=== PATIENT | female | born 1940 | race Caucasian/White ===

== ENCOUNTER 2018-04-03 18:31 | Emergency (ER) | payer BC, MEDICARE ==
[2018-04-03 18:44] VITALS: BP 163/79
--- NOTE | 2018-04-03 19:18 | EDM.PDOC ---
ED HPI GENERAL MEDICAL PROBLEM - General Chief Complaint: Bite:Animal, Insect Stated Complaint: DEER TICK RIGHT LEG Time Seen by Provider: 04/03/18 19:01 Source of Information: Reports: Patient History Limitations: Reports: No Limitations - History of Present Illness INITIAL COMMENTS - FREE TEXT/NARRATIVE: This lady is here for an am dated deer tick in her right medial thigh. She doesn 't know how long its been there. She tried to remove it. Right Leg Pain Score (Numeric/FACES): 2 - Related Data Allergies Allergy/AdvReac Type Severity Reaction Status Date / Time No Known Allergies Allergy Verified 11/19/13 09:12 Home Meds: Home Meds Aspirin [Adult Low Dose Aspirin EC] 81 mg PO DAILY 07/02/14 [History] Simvastatin 20 mg PO DAILY 07/02/14 [History] Calcium Carb/Vitamin D3/Vit K1 [Calcium + Vit D & K Chew] 1 each PO DAILY [History] Doxylamine Succinate [Sleep Aid] 25 mg PO BEDTIME PRN 12/12/15 [History] Glucosamine [Glucosamine Sulfate] 1,000 mg PO DAILY 12/12/15 [History] Past Medical History HEENT History: Reports: Cataract, Impaired Vision Respiratory History: Reports: Pneumonia, Recurrent Gastrointestinal History: Reports: Colon Polyp, Hemorrhoids Genitourinary History: Reports: UTI, Recurrent [employer] History: Reports: Musculoskeletal History: Reports: Arthritis Endocrine/Metabolic History: Reports: Obesity/BMI 30+ - Infectious Disease History Infectious Disease History: Reports: Chicken Pox, Measles, Mumps Other Infectious Disease History: unsure if she has had chicken pox and she thinks she had measles as a child - Past Surgical History Endocrine Surgical History: Reports: None Musculoskeletal Surgical History: Reports: Other (See Below) Social & Family History - Family History Family Medical History: Noncontributory - Tobacco Use Smoking Status *Q: Never Smoker - Caffeine Use Caffeine Use: Reports: Coffee - Recreational Drug Use Recreational Drug Use: No ED ROS GENERAL - Review of Systems Review Of Systems: ROS reveals no pertinent complaints other than HPI. ED EXAM, ANIMAL BITE - Physical Exam Exam: See Below Skin Exam: Other (On the medial aspect of the right thigh there is a small black speck about half millimeter in diameter on top of a an area about 3 mm in diameter where she was scraped off the skin is consistent with a embedded deer tick head.) Course - Vital Signs Last Recorded V/S: Last Vital Signs Temp 36.2 C 04/03/18 18:48 Pulse 71 04/03/18 18:48 Resp 16 04/03/18 18:48 BP 163/79 H 04/03/18 18:48 Pulse Ox 93 L 04/03/18 18:48 - Re-Assessments/Exams Free Text/Narrative Re-Assessment/Exam: 04/03/18 19:16 The area was cleaned with an alcohol swab. Then using a #15 blade I made a horseshoe shaped incision around the head and it was able to scrape it out. There was no blood loss. A Band-Aid was applied Departure - Departure Time of Disposition: 19:16 Disposition: Home, Self-Care 01 Condition: Fair Clinical Impression: Embedded tick of right thigh - Discharge Information Referrals: PCP,None [Primary Care Provider] - Additional Instructions: The prescription will say take doxycycline twice daily for 1 week but for a bite like this 3 days is sufficient. The wound should not require any further care. The antibiotic will help prevent any infection.
== END 2018-04-03 19:25 | disposition home or self-care (01) ==
LOC: JP.ED 18:31
DX: S70.351A Superficial foreign body, right thigh, initial encounter (principal); S70.361A Insect bite (nonvenomous), right thigh, initial encounter; Z79.82 Long term (current) use of aspirin; Z79.899 Other long term (current) drug therapy; W57.XXXA Bitten or stung by nonvenomous insect and other nonvenomous arthropods, initial encounter
CPT/HCPCS: 10120; 99283-25

== ENCOUNTER → 2019-01-14 | Day surgery (SDC) | payer MEDICARE, BC ==
[~2019-01-14] MED LIST: Midazolam 1 MG/ML 2 ML SDV ONE; Propofol 200 MG/20 ML SDV ONE; Sodium Chloride 0.9% 1,000 ML IV SCH; fentaNYL 100 MCG/2 ML SDV ONE
[2019-01-14 09:29] VITALS: BP 155/100
--- NOTE | 2019-01-15 08:46 | OR ---
DATE OF PROCEDURE: 01/14/2019 SURGEON: Jared Calvert MD PROCEDURE: Colonoscopy. FINDINGS: Diverticulosis, moderate, limited to sigmoid colon. PREOPERATIVE DIAGNOSIS: Screening colonoscopy. POSTOPERATIVE DIAGNOSIS: Screening colonoscopy. RISKS: Risks, benefits, alternatives, and limitations including, but not limited to, infection, bleeding, and perforation were explained to the patient, who wished to proceed. DESCRIPTION OF PROCEDURE: The patient was placed in the left lateral decubitus position. Digital rectal exam was performed without abnormality. The scope was introduced and advanced atraumatically to the ileocecal valve. The scope was brought back through the ascending, transverse, descending colon, and retroflexed. No masses. No polyps. Diverticulosis was described as mild and limited to sigmoid colon. No abnormalities on retroflexion. The patient tolerated the procedure well. Jared Calvert MD /[id number]
== END ==
LOC: JP.SDS 06:42
PROVIDERS: ATTEND Surgery
DX: Z12.11 Encounter for screening for malignant neoplasm of colon (principal); K57.30 Diverticulosis of large intestine without perforation or abscess without bleeding
CPT/HCPCS: G0121; J2250; J2704; J3010; J7030

== ENCOUNTER 2022-08-29 07:23 | Day surgery (SDC) | payer MEDICARE, BC ==
[2022-08-29] MEDS: Sodium Chloride 0.9% 10 ML Syringe FLUSH PRN (07:56)
[2022-08-29] MEDS ORDERED: Propofol 200 MG/20 ML SDV ONE (09:06)
[2022-08-29 09:40] VITALS: BP 120/77; PULSE 63
== END 2022-08-29 10:09 | disposition home or self-care (01) ==
LOC: JP.SDS 07:23
PROVIDERS: ATTEND Ophthalmology
DX: H25.11 Age-related nuclear cataract, right eye (principal); Z88.8 Allergy status to other drugs, medicaments and biological substances
CPT/HCPCS: 66984; J2704; J3490

== ENCOUNTER 2022-09-12 08:16 | Day surgery (SDC) | payer MEDICARE, BC ==
[2022-09-12] MEDS ORDERED: Sodium Chloride 0.9% 1,000 ML IV SCH (09:30)
[2022-09-12] MEDS ORDERED: Propofol 200 MG/20 ML SDV ONE (09:43)
[2022-09-12 11:01] VITALS: PULSE 57
[2022-09-12 11:13] VITALS: BP 116/72
== END 2022-09-12 11:34 | disposition home or self-care (01) ==
LOC: JP.SDS 08:16
PROVIDERS: ATTEND Ophthalmology
DX: H25.12 Age-related nuclear cataract, left eye (principal); Z88.8 Allergy status to other drugs, medicaments and biological substances
CPT/HCPCS: 66984; J2704; J7030

== ENCOUNTER 2024-06-23 03:03 | Emergency (ER) | payer MEDICARE, BC ==
[2024-06-23] MEDS: Cyclobenzaprine 10 MG Tab PO ONE (03:32)
[2024-06-23] MEDS: Ketorolac 30 MG/ML SDV IVPUSH ONE (03:33)
[2024-06-23] MEDS: Sodium Chloride 0.9% 10 ML Syringe FLUSH PRN (03:34)
[2024-06-23] MEDS ORDERED: Naloxone 0.4 MG/ML SDV IVPUSH PRN (04:24)
[2024-06-23 04:38] VITALS: PULSE 76
[2024-06-23] MEDS: fentaNYL 100 MCG/2 ML SDV IVPUSH ONE (04:44)
[2024-06-23 05:29] VITALS: BP 149/88
== END 2024-06-23 08:25 | disposition home or self-care (01) ==
LOC: JP.ED 03:03
DX: M54.6 Pain in thoracic spine (principal); E78.00 Pure hypercholesterolemia, unspecified; E66.9 Obesity, unspecified; Z88.8 Allergy status to other drugs, medicaments and biological substances; Z79.82 Long term (current) use of aspirin; Z79.899 Other long term (current) drug therapy; Z90.49 Acquired absence of other specified parts of digestive tract; Z90.710 Acquired absence of both cervix and uterus; Z68.29 Body mass index [BMI] 29.0-29.9, adult
CPT/HCPCS: 96374; 96375; 99284; A9270; J1885; J3010; J3490

== ENCOUNTER 2024-06-25 08:33 | Emergency (ER) | payer MEDICARE, BC ==
[2024-06-25 09:02] VITALS: BP 115/70; PULSE 97
[2024-06-25 09:35] LABS: BASOPHILS ABSOLUTE AUTO 0.04 K/uL (0.00-0.10); BASOPHILS PERCENT AUTO 0.4 % (0.1-1.3); EOSINOPHILS ABSOLUTE AUTO 0.03 K/uL (0.00-0.40); EOSINOPHILS PERCENT AUTO 0.3 % (0.0-5.4); HEMATOCRIT 41.1 % (34.3-46.0); HEMOGLOBIN 14.3 g/dL (11.2-15.5); IMMATURE GRAN ABSOLUTE AUTO 0.04 K/uL (0.00-0.23); IMMATURE GRAN PERCENT AUTO 0.4 % (0.0-0.7); LYMPHOCYTES ABSOLUTE AUTO 1.84 K/uL (0.8-3.3); LYMPHOCYTES PERCENT AUTO 20.3 % (11.4-47.7); MEAN CORPUSCULAR HEMOGLOBIN 28.5 pg (31.6-35.5); MEAN CORPUSCULAR HGB CONC 34.8 g/dL (31.6-35.5); MEAN CORPUSCULAR VOLUME 81.9 fL (81.4-99.0); MONOCYTES ABSOLUTE AUTO 1.09 K/uL (0.20-0.90); NEUTROPHILS ABSOLUTE AUTO 6.01 K/uL (1.0-7.6); NEUTROPHILS PERCENT AUTO 66.6 % (40.0-78.1); PLATELET COUNT,PLT 269 K/uL (130-375); RED BLOOD CELL COUNT 5.02 M/uL (3.77-5.24); WHITE BLOOD CELL COUNT,WBC 9.1 K/uL (3.2-11.0)
[2024-06-25 10:04] LABS: A/G RATIO 0.8 (1.2-2.2); ALANINE AMINOTRANSFERASE,ALT 30 U/L (12-78); ALBUMIN 3.6 g/dL (3.4-5.0); ALKALINE PHOSPHATASE 88 U/L (46-116); ASPARTATE AMNIOTRANSFERASE,AST 26 U/L (15-37); BILIRUBIN TOTAL 0.8 mg/dL (0.2-1.0); BLOOD UREA NITROGEN,BUN 18 mg/dL (7-18); CALCIUM 9.3 mg/dL (8.5-10.1); CARBON DIOXIDE,CO2 30 mmol/L (21-32); CHLORIDE,CL 94 mmol/L (100-108); CREATININE 1.1 mg/dL (0.6-1.0); EST CRCL DRUG DOSING (CG) 32.87 mL/min; ESTIMATED GFR 50 mL/min (>60); GLUCOSE RANDOM 102 mg/dL (74-106); POTASSIUM,K 4.9 mmol/L (3.6-5.2); PROTEIN TOTAL,TP 7.9 g/dL (6.4-8.2); SODIUM,NA 131 mmol/L (140-148); TSH ULTRASENSITIVE 3.709 uIU/mL (0.358-3.740)
[2024-06-25 10:05] LABS: ANION GAP 11.9 mmol/L (5.0-14.0)
== END 2024-06-25 10:52 | disposition home or self-care (01) ==
LOC: JP.ED 08:33
DX: G51.0 Bell's palsy (principal); E78.00 Pure hypercholesterolemia, unspecified; M19.90 Unspecified osteoarthritis, unspecified site; E66.9 Obesity, unspecified; Z68.27 Body mass index [BMI] 27.0-27.9, adult; Z90.49 Acquired absence of other specified parts of digestive tract; Z90.710 Acquired absence of both cervix and uterus; Z79.82 Long term (current) use of aspirin; Z79.899 Other long term (current) drug therapy; Z88.8 Allergy status to other drugs, medicaments and biological substances
CPT/HCPCS: 36415; 80053; 84443; 85025; 99284